=== PATIENT | male | born 1975 | race African-American/Black ===

== ENCOUNTER 2018-07-13 22:47 | Emergency (ER) | payer BC, OTHER ==
--- NOTE | 2018-07-13 23:53 | CT ---
CT BRAIN WITHOUT CONTRAST: History: Fall from standing. Comparison: None. FINDINGS: No acute hemorrhage or infarct. No midline shift or mass effect. Sinuses and extraaxial CSF spaces ar e normal. Calvarium is intact. Paranasal sinuses and mastoids are clear. IMPRESSION: No acute intracranial abnormality. POS: [facility]
== END 2018-07-13 23:54 | disposition home or self-care (01) ==
LOC: ERS 22:47
DX: R20.2 Paresthesia of skin (principal); I10 Essential (primary) hypertension; F17.210 Nicotine dependence, cigarettes, uncomplicated; Z79.899 Other long term (current) drug therapy; Z71.6 Tobacco abuse counseling; W18.30XA Fall on same level, unspecified, initial encounter
CPT/HCPCS: 70450; 99406